=== PATIENT | female | born 1965 | race Caucasian/White ===

== ENCOUNTER 2025-03-19 15:33 | Outpatient (CLI) | payer OTHER, SELFPAY ==
--- NOTE | ~2025-03-19 | US_ITS ---
EXAM: RENAL ULTRASOUND HISTORY: serum creatinine above reference range COMPARISON: None FINDINGS: RIGHT KIDNEY: 10.4 x 4.7 x 6.3 cm. The parenchyma of the right kidney is unremarkable in echogenicity. No hydronephrosis or bulky renal calculi. LEFT KIDNEY: 9.9 x 5.0 x 5.5 cm No hydronephrosis or renal calculi. An indeterminate avascular focus of decreased echogenicity is identified within the interpolar region of the left kidney measuring 4.4 x 2.2 x 2.3 cm. The remainder of the parenchyma of the left kidney is unremarkable in echogenicity. BLADDER: Only minimally distended, limiting its evaluation. IMPRESSION: No hydronephrosis or renal calculi. Findings within the interpolar region of the left kidney for which contrast enhanced cross-sectional imaging is recommended (with either CT or MRI), with renal mass protocol. Reviewed, dictated and finalized at location A. IMPRESSION: No hydronephrosis or renal calculi. Findings within the interpolar region of the left kidney for which contrast enh anced cross-sectional imaging is recommended (with either CT or MRI), with michael l mass protocol.
== END 2025-03-19 15:34 | disposition home or self-care (01) ==
LOC: MICIMG 15:34
PROVIDERS: PCP Internal Medicine; Visit Provider Internal Medicine
DX: R79.89 Other specified abnormal findings of blood chemistry (principal)
CPT/HCPCS: 76775

== ENCOUNTER 2025-03-30 09:23 | Outpatient (CLI) | payer OTHER, SELFPAY ==
--- NOTE | ~2025-03-30 | MR_ITS ---
EXAMINATION: MR renal wo con DATE: 03/30/2025 10:14 INDICATION: Abnormal findings on diagnostic imaging TECHNIQUE: Magnetic resonance imaging (MRI) of the abdomen was performed without intravenous contrast . Sequences included coronal T2-weighted SS-FSE, coronal and axial FS 2D-FIESTA, axial STIR FSE, axi al T2-weighted SS-FSE, axial T2-weighted FS SS-FSE, axial diffusion-weighted SE, axial dual-echo T1-w eighted FSPGR, and axial and coronal T1-weighted LAVA. COMPARISON: Ultrasound dated 03/19/2025 FINDINGS: Heart size is normal. No pericardial or pleural effusion. Diffuse hepatic steatosis with focal sparin g along the gallbladder fossa. Gallbladder, spleen, pancreas and bilateral adrenal glands are normal. There is a 4.1 x 2.5 x 2.8 cm cyst at the upper pole of the right kidney which extends into the ceph alad aspect of the renal hilum corresponding to the lesion of concern on prior ultrasound. There are couple additional <5 2. 2 hyperintense likely cysts in both kidneys. Visualized portions of bowels are unremarkable includ ing a normal appendix. No pathologically enlarged abdominal or upper pelvic lymphadenopathy. Moderate lumbar and thoracic spondylosis. A couple T1 hyperintense fat saturating hemangiomas at T11. IMPRESSION: 1. 4.1 x 2.5 x 2.8 cm left renal cyst which corresponds to the lesion of concern on prior ultrasound. Reviewed, dictated and finalized at location A. IMPRESSION: 1. 4.1 x 2.5 x 2.8 cm left renal cyst which corresponds to the lesion of concer n on prior ultrasound.
== END 2025-03-30 09:24 | disposition home or self-care (01) ==
PROVIDERS: PCP Internal Medicine; Visit Provider Internal Medicine
DX: N28.1 Cyst of kidney, acquired (principal); R93.89 Abnormal findings on diagnostic imaging of other specified body structures
CPT/HCPCS: 74181

== ENCOUNTER 2025-04-20 17:19 | Outpatient (CLI) | payer OTHER, SELFPAY ==
--- OUTSIDE RECORDS SUMMARY | 2025-04-20 17:28 | XMS_ITS | CONTINUITY OF CARE DOCUMENT ---
Author Name maya trejo Address Unknown Organization [facility] Address [address] [place] [address] Phone [phone] Care Team Providers Care Site Leasing Agent Name Role Phone Macho GARCIA, Jose Ramon Unavailable [phone] RICHARD BROWN MD Unavailable [phone] RICHARD BROWN MD Unavailable INSURANCE PROVIDERS Payer name Policy type / Coverage type Walden red democrat ID [facility] [id number] Other [id number] HEALTHCARE AND FAMILY SERVICES Medicaid 1 [id number]
--- OUTSIDE RECORDS SUMMARY | 2025-04-20 17:28 | XMS_ITS | Encounter Summary ---
Author Organization [facility] Address 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
--- OUTSIDE RECORDS SUMMARY | 2025-04-20 17:28 | XMS_ITS | Clinical Summary ---
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
--- OUTSIDE RECORDS SUMMARY | 2025-04-20 17:28 | XMS_ITS | Continuity of Care Document ---
Author Organization Located within [facility] Address [address] [place] [address] [address] [place] [address] Phone Care Team Providers Care Delivery Assistant Name Role Phone Marie OD, Felipe Unavailable Unavailable Procedures Procedure Date Eye Exam & Treatment Refraction Office/outpatient Visit, Est Office/outpatient Visit, Est Advance Directives Directive Yes / No Effective Date File Name No Information Encounters Encounter Description Practice Location Reason(s) For Visit Diagnoses Date Provider Providers Copied on Encounter [facility], [address] [place] [address] [address], [place], [place], [id number], [place] tel:[phone] [facility] No Information [address] Marie OD Felipe. [address] , [address], [place], [address], [place]. tel:[phone] Office/outpat ient Visit, [facility], [address] [place] [address] [address], [place], [place], [id number], [place] tel:[phone] [facility] No Information [address] Wantee Lyles. [address], [address], [place], [place], [id number], [place]. tel:[phone] Office/outpat ient Visit, [facility], [address] [place] [address] [address], [place], [place], [id number], [place] tel:[phone] [facility] No Information 7 Doisy Edward. [address] , [address], [place], [address], [place]. tel:[phone] Family History Family Member Type Diagnosis Age At Onset No Information Payers Payer name Insurance type Covered green party ID Ashley galloway(s) Medicaid [facility] [id number] Social History Type Description Quantity Date Captured Comments Sex Female Smoking Status No Information Chief Complaint And Reason For Visit No Information Reason For Referral Reason For Referral No Information History Of Present Illness Encounter Date Complaint History Of Prese nt Illness No Information Functional Status Date Functional Assessmen t No Information Instructions Date Instruction Additional Infor mation No Information Assessments Type Assessment Date No Information Patient Care Teams Name Effective Dates (start - stop) Status Members No Information
--- OUTSIDE RECORDS SUMMARY | 2025-04-20 17:28 | XMS_ITS | Encounter Summary ---
Author Organization [facility] Address 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
[2025-04-20 18:06] LABS: Basophils Percent Auto 0.3 % (0.2-1.2); Eosinophils Absolute Auto 0.3 K/mm3 (0-0.3); Hematocrit 42.2 % (37.0-47.0); Hemoglobin 13.7 g/dL (12.0-15.0); Immature Granulocyte Absolute 0.04 K/mm3 (0.00-0.031); Immature Granulocyte Percent A 0.3 % (0-0.5); Lymphocytes Absolute Auto 3.74 K/mm3 (0.9-3.2); Lymphocytes Percent Auto 28.1 % (18.3-44.2); Mean Corpuscular HGB Conc 32.5 g/dl (32-36); Mean Corpuscular Hemoglobin 28.4 pg (26-34); Mean Corpuscular Volume 87.6 fl (80-100); Mean Platelet Volume 9.7 fl (7.4-10.4); Monocytes Absolute Auto 0.9 K/mm3 (0.1-0.6); Monocytes Percent Auto 6.5 % (2.6-8.5); Neutrophils Absolute Auto 8.4 K/mm3 (1.3-6.7); Neutrophils Percent Auto 62.8 % (45.5-73.1); Platelet Count Result 235 k/mm3 (150-375); Red Blood Count 4.82 M/mm3 (4.2-5.4); Red Cell Distribution Width 13.4 % (11.5-14.5); White Blood Count 13.3 K/mm3 (4.5-10.0)
[2025-04-20 18:21] LABS: Alanine Aminotransferase 29 U/L (6-35); Albumin Level 4.3 g/dL (3.5-5.1); Alkaline Phosphatase 75 U/L (38-126); Anion Gap 9 mmol/L (4-12); Aspartate Amino Transferase 37 U/L (14-36); Bilirubin,Total 0.6 mg/dL (0.2-1.3); Blood Urea Nitrogen 25 mg/dL (7-17); Calcium 9.6 mg/dL (8.4-10.2); Carbon Dioxide 28 mmol/L (22-30); Chloride 102 mmol/L (98-107); Estimated Glomerular Filt Rate 58; Glucose 85 mg/dL (65-110); Potassium 4.5 mmol/L (3.4-5.0); Sodium 139 mmol/L (137-145)
[2025-04-21 07:54] LABS: Add Urine Microscopic? YES; Appearance Urine Cloudy (Clear); Bacteria Urine 4+ /hpf; Bilirubin Urine Negative (Negative); Blood Urine 3+ (Negative); Color Urine Dark Yellow (Yellow); Glucose Urine UA Negative (Negative); Ketones Urine Negative (Negative); Leukocyte Esterase Ur 1+ LEU/UL (Negative); Need Manual Microscopic Reviewed; Nitrate Urine Negative (Negative); Non Pathogenic Casts 0-2; Protein Urine 1+ mg/dL (Negative); RBC Urine >100 /hpf (0-2); Specific Grav Ur 1.023 (1.001-1.035); Squamous Epithelial Cell Urine Moderate /hpf (Few); Urobilinogen Urine 0.2 mg/dL (<2.0); WBC Urine 21-50 /hpf (0-3)
== END 2025-04-20 17:20 | disposition home or self-care (01) ==
LOC: ANHLAB 17:26
PROVIDERS: PCP Internal Medicine; Visit Provider Internal Medicine
DX: R31.9 Hematuria, unspecified (principal)
CPT/HCPCS: 36415; 80053; 81001; 85025

== ENCOUNTER 2025-05-03 13:30 | Outpatient (RCR) | payer OTHER, SELFPAY ==
[2025-03-08 14:44] VITALS: BMI 50.0
[2025-04-03 14:50] VITALS: BMI 50.0
[2025-05-03 13:30] VITALS: BMI 49.7
== END 2025-06-05 07:49 | disposition home or self-care (01) ==
LOC: ANHDMC 13:30
PROVIDERS: PCP Internal Medicine; Visit Provider Internal Medicine
DX: E11.9 Type 2 diabetes mellitus without complications (principal); Z71.3 Dietary counseling and surveillance
CPT/HCPCS: 97802; 97803

== ENCOUNTER 2025-05-09 15:25 | Outpatient (CLI) | payer OTHER, SELFPAY ==
--- NOTE | ~2025-05-09 | CT_ITS ---
CT of the Abdomen and Pelvis: Indication: Microscopic hematuria Technique: 2.5 mm axial scans were obtained through the abdomen and pelvis prior to and following in travenous administration of 130 cc of Omnipaque 350. Dose reduction technique was used on this scan b y utilizing automated exposure control and iterative reconstruction technique. The dose-length produc t (DLP) was 2172.64 mGy-cm. Findings: Scans through the lung bases are unremarkable. The liver, spleen, pancreas, gallbladder, adrenals and kidneys are within normal limits. No evidence of aortic aneurysm. No lymphadenopathy. No bowel obstruction or bowel wall thickening. There is no evidence to suggest acute appendicitis. Images through the pelvis were performed. Urinary bladder unremarkable. No pelvic mass seen. No ascit es. Impression: No significant abnormalities seen. No etiology for hematuria identified. Reviewed, dictated and finalized at [facility]. Impression: No significant abnormalities seen. No etiology for hematuria identified.
== END 2025-05-09 15:26 | disposition home or self-care (01) ==
PROVIDERS: PCP Internal Medicine; Visit Provider Urology
DX: R31.29 Other microscopic hematuria (principal)
CPT/HCPCS: 74178; Q9967

== ENCOUNTER 2025-05-17 07:19 | Outpatient (CLI) | payer OTHER, SELFPAY ==
--- NOTE | ~2025-05-17 | XR_ITS ---
EXAM/PROCEDURE: XR chest 2V - 05/17/2025 7:27 CDT HISTORY: 60 years old Female with Dyspnea TECHNIQUE: Two view(s) of the chest. COMPARISON: None available. FINDINGS: LUNGS/ PLEURA: No focal consolidation. No appreciable pneumothorax or large pleural effusion. HEART/ MEDIASTINUM: Heart appears normal in size. BONES: Degenerative changes. Partially visualized ORIF in the left proximal humerus. OTHER: Visualized upper abdomen is unremarkable. IMPRESSION: No acute process. Reviewed, dictated and finalized at location A. IMPRESSION: No acute process.
== END 2025-05-17 07:20 | disposition home or self-care (01) ==
LOC: MICIMG 07:22
PROVIDERS: PCP Internal Medicine; Visit Provider Internal Medicine
DX: R06.00 Dyspnea, unspecified (principal)
CPT/HCPCS: 71046

== ENCOUNTER 2025-08-06 01:01 | Day surgery (SDC) | payer OTHER, SELFPAY ==
[2025-07-30 10:39] VITALS: BMI 49.8
--- NOTE | 2025-07-30 10:51 | PC.NURSE ---
Report to the Outpatient Waiting Room, entrance under the green pavilion located off [facility], at time _0700_ on date _[id number]_. Planned Procedure Time: _0900_.? Time changes happen often and if your time is changed the preop area will call you the afternoon before. - You and your visitor will be asked to self-screen and do not enter if you have any COVID symptoms. Please call surgeon if you need to reschedule. - A mask is optional within the hospital at this time. Patients may have clear liquids (water, carbonated beverages, clear teas, apple juice) until 3 hours prior to surgery with a maximum of 20 ounces. - No food from midnight until time of surgery and no smoking, or chewing tobacco (or any form of nicotine). No chewing gum, candy or mints. Take only the following medications with a SIP of water on the morning of surgery: __Metoprolol, Hydralazine and if needed may use inhalers.___ DO NOT STOP ANY OF YOUR OTHER PRESCRIPTION MEDICATIONS PRIOR TO SURGERY EXCEPT THE FOLLOWING Hold all vitamins and supplements for 3 days per anesthesiologist. Medications to discontinue per physician Date to take last dose Please no make-up, nail djiboutian, hairspray, perfume, deodorant, or body powder the day of surgery.? No jewelry (including any body piercings) or valuables the day of surgery, leave them at home.? Please take a shower or bath the night before, or the morning of, surgery with an antibacterial soap.? Wear comfortable, loose fitting clothing.? - Jewelry must be removed prior to entering the operating room.? Rings and piercings that are not removed may be cut off. - The hospital will not accept responsibility for valuables.? - Please leave all valuables, including medications, at home the day of surgery. If you are going home after surgery, a licensed regional owner operator truck driver must drive you home.? - NO public transportation without another adult if you receive anesthesia. - We recommend that an adult stay with you for 24 hours following discharge. - We also recommend that you do not drive, make important decision, drink alcoholic beverages, or take any drugs that were not prescribed by your health care provider for at least 24 hours after your discharge time. Follow any additional instructions given to you from your surgeon. Telephone instructions given to __Sheryl___and asked if any additional questions and then verbalized understanding. Patient advised to call surgeon office or pre surgery nurse liaison [phone] if any additional questions.
--- NOTE | 2025-08-05 12:50 | PM.IMHP ---
H&P: HPI History of Present Illness Date/Time: 08/05/25 12:50 Chief Complaint: PMB Narrative: Paula is a 60yo postmenopausal P2022, who presented as a [employer] IN[employer] for [employer] 06/2025; pap was normal 06/2025. She reports a h/o polyps and had a D&C (benign) in approximately 2020. She has not had any bleeding until recently. She has been having medical issues and ultimately diagnosed with diastolic heart dysfunction (had extreme lower extremity swelling) and had multiple checks on her kidneys/bladder that were all negative, because she had bleeding for 3 weeks. She reports passing clots, she denies any pelvic pain. She denies any vaginal issues. She is not sexually active. She denies any breast issues, scheduled for her mammo. She reports a normal h/o paps, last 2020. She is also scheduled for colon cancer screening. 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 Review of Systems Constitutional: Constitutional: Denies chills, Denies fever(s) and Denies headache(s) Eyes: Eyes: Denies change in vision ENT: Denies dizziness and Denies headache(s) Cardiovascular: Cardiovascular: Denies chest pain and Denies dyspnea Respiratory: Respiratory: Denies cough and Denies dyspnea Gastrointestinal: Gastrointestinal: Denies abdominal pain and Denies change in stool character Genitourinary: Genitourinary: Reports abnormal vaginal bleeding, Denies pelvic pain, Denies vaginal discharge, Denies vaginal odor and Denies vaginal pruritus Neurologic: Denies dizziness and Denies headache(s) Psychiatric: Psychiatric: Denies anxiety and Denies depression [facility] Past Medical History Medical History (Updated 07/05/25 @ 14:37 by Shari Cain MD) Diabetes Diastolic dysfunction Surgical History Surgical History (Updated 07/05/25 @ 13:50 by Mic Obregon MA) H/O dilation and curettage History of open reduction and internal fixation (ORIF) procedure open reduction internal fixation three parts left proximal humerus fracture Family History Family History Father Diabetes mellitus Hypertension Kidney disease Mother Diabetes mellitus Heart disease Hypertension Grandparent Hypertension Other Stomach cancer Colon cancer Social History Social History (Updated 07/05/25 @ 13:49 by OBI Peñaloza Smoking status: Former smoker Tobacco type: cigarettes Alcohol intake: former Alcohol use details: 26 years ago Substance use: former Substance use type: marijuana, crack/cocaine, opiates and other Current Housing: Decline to Answer Concerned About Future Housing: Decline to Answer Difficulty Paying Gas/Electric Bills: Decline to Answer Difficulty Paying for Meds: Decline to Answer Currently Unemployed: Decline to Answer Education: Decline to Answer Difficulty w/ Childcare or Family Care: Decline to Answer Living arrangements: alone Occupation/Education: occupation Additional occupation/education comments: [employer] Spiritual care concerns: No Meds Home Medications and Allergies Home Medications ?Medication ?Instructions ?Recorded ?Confirmed ?Type atorvastatin 10 mg tablet 10 mg PO QPM 02/26/25 07/30/25 History metoprolol succinate 25 mg 25 mg PO DAILY 02/26/25 07/30/25 History tablet,extended release 24 hr montelukast 10 mg tablet 10 mg PO DAILY 02/26/25 07/30/25 History fluticasone furoate 50 1 inh inhalation Q24H PRN allergic 07/05/25 07/30/25 History mcg/actuation blister powder for symptoms inhalation furosemide 20 mg tablet 40 mg PO DAILY 07/05/25 07/30/25 History hydralazine 50 mg tablet 50 mg PO BID 07/05/25 07/30/25 History albuterol 90 mcg/actuation aerosol 90 mcg inhalation Q6H PRN dyspnea 07/30/25 07/30/25 History inhaler biotin 10,000 mcg capsule 1 mcg PO DAILY 07/30/25 07/30/25 History sacubitril 97 mg-valsartan 103 mg 1 tablet PO BID 07/30/25 07/30/25 History tablet (Entresto) Allergies Allergy/AdvReac Type Severity Reaction Status Date / Time No Known Allergies Allergy Verified 07/30/25 10:31 Exam Const: General: cooperative, healthy appearing, comfortable and no acute distress Orientation/consciousness: patient oriented x3 Resp: Effort & Inspection: normal respiratory effort Cardio: Rate: regular rate GI: Inspection: normal to inspection GI Palp: No abdominal tenderness and Yes Soft to palpation : Other: deferred to OR Skin: General skin exam: normal color Neuro: General: patient oriented x3 Extrem: General: normal to inspection Psych: Appearance: grossly normal Affect: normal affect Attitude: cooperative Assessment and Plan Assessment and plan (1) Postmenopausal bleeding: Code(s): N95.0 - Postmenopausal bleeding Status: Acute Plan - PMB in the setting of thickened endometrium noted on THERAPEUTIC RIDING INSTRUCTOR US, need to rule out hyperplasia or malignancy - Proceed with Hysteroscopy with D&C - risks and benefits discussed in detail
--- NOTE | 2025-08-06 07:03 | WPDHPUPDATE1 ---
History and Physical Update Update Date/Time: 08/06/25 07:03 History and Physical has been reviewed, including an updated exam of the patient. There are NO changes in the patient's condition. Risks, benefits, and alternatives have been discussed and questions answered. Patient agrees to proceed with Hysteroscopy with D&C .
[2025-08-06] MEDS: LACTATED RINGERS 1,000 ML 30 ML IV CONT (11:30)
[2025-08-06] MEDS: ACETAMINOPHEN 500 MG TABLET 1000 MG PO (11:30)
[2025-08-06 12:49] VITALS: BP 170/75; PULSE 64; TEMP 36.4; O2SAT 96; BMI 51.0
--- NOTE | 2025-08-06 12:52 | WPDANESEPPF ---
Anes - Initial Pre Proc Eval Procedure: Operation Date: 08/06/25 13:00 Proposed Procedures p Hysteroscopy Dilation and Curettage - Shari Cain MD Date/Time: 08/06/25 12:52 Surgeon: Shari Cain MD Pre Op Diagnosis: post menopausal bleeding Patient Data Age: 60 Gender: F Height: 1.73 m Weight: 152.1 kg Last Vital Signs Temp 36.4 C L 08/06/25 12:49 Pulse 64 08/06/25 12:49 BP 170/75 H 08/06/25 12:49 Pulse Ox 96 08/06/25 12:49 O2 Del Method Room Air 08/06/25 12:49 Allergies Allergy/AdvReac Type Severity Reaction Status Date / Time No Known Allergies Allergy Verified 07/30/25 10:31 Home Medications ?Medication ?Instructions ?Recorded ?Confirmed ?Type atorvastatin 10 mg tablet 10 mg PO QPM 02/26/25 07/30/25 History metoprolol succinate 25 mg 25 mg PO DAILY 02/26/25 08/06/25 History tablet,extended release 24 hr montelukast 10 mg tablet 10 mg PO DAILY 02/26/25 07/30/25 History fluticasone furoate 50 1 inh inhalation Q24H PRN allergic 07/05/25 07/30/25 History mcg/actuation blister powder for symptoms inhalation furosemide 20 mg tablet 40 mg PO DAILY 07/05/25 07/30/25 History hydralazine 50 mg tablet 50 mg PO BID 07/05/25 08/06/25 History albuterol 90 mcg/actuation aerosol 90 mcg inhalation Q6H PRN dyspnea 07/30/25 07/30/25 History inhaler biotin 10,000 mcg capsule 1 mcg PO DAILY 07/30/25 07/30/25 History sacubitril 97 mg-valsartan 103 mg 1 tablet PO BID 07/30/25 07/30/25 History tablet (Entresto) acetaminophen 500 mg tablet 1,000 mg (2 x 500 mg) PO TID #60 08/06/25 Rx tabs Laboratory Tests 08/06/25 11:45 POC Capillary Glucose 125 H mg/dl (65-105) Patient hx anesthesia problems: none Family hx anesthesia problems: none Results Review: All pre-operative results and documents have been reviewed as part of the pre-operative evaluation. PMFSH Past Medical History Medical History (Updated 08/06/25 @ 12:52 by Ant Costello MD) HTN (hypertension) SELVIN (obstructive sleep apnea) Diastolic dysfunction Surgical History Surgical History H/O dilation and curettage History of open reduction and internal fixation (ORIF) procedure open reduction internal fixation three parts left proximal humerus fracture Family History Family History Father Diabetes mellitus Hypertension Kidney disease Mother Diabetes mellitus Heart disease Hypertension Grandparent Hypertension Other Stomach cancer Colon cancer Social History Social History Smoking status: Former smoker Tobacco type: cigarettes Alcohol intake: former Alcohol use details: 26 years ago Substance use: former Substance use type: marijuana, crack/cocaine, opiates and other Current Housing: Decline to Answer Concerned About Future Housing: Decline to Answer Difficulty Paying Gas/Electric Bills: Decline to Answer Difficulty Paying for Meds: Decline to Answer Currently Unemployed: Decline to Answer Education: Decline to Answer Difficulty w/ Childcare or Family Care: Decline to Answer Living arrangements: alone Occupation/Education: occupation Additional occupation/education comments: [employer] Spiritual care concerns: No Anes - Eval Final PreProcedure Day of Procedure 08/06/25 12:52 Patient weight: morbidly obese Heart: regular rate and rhythm Lungs: clear to auscultation Airway: Mallampati scale class II Neurological: alert and oriented Last oral intake: >/= 8 hours ASA classification: III Emergent: no Anesthetic plan: proceed Anesthesia type and monitoring: general GIVS and standard monitoring Results Review: All pre-operative results and documents have been reviewed as part of the pre-operative evaluation. Informed Consent: The patient's anesthetic plan and its attendant risks and benefits were discussed with the patient/family/POA. Questions were solicited and answers provided to the satisfaction of the patient/family/POA.
--- NOTE | 2025-08-06 13:19 | S_PTH ---
PATIENT: Paula Hamm LOC: [facility] U#:[id number] AGE/SX: 60/F ROOM: RE08/06/[address]: Shari Cain MD : 1965 BED: DIS: 08/06/2025 SPEC #: [id number] RECD: 08/06/25 13:50 STATUS: VIVIEN RE #: [id number] CESIA: 08/06/25 13:[address]: Shari Cain DEPT: [facility] Surgical RECD BY: Bridger Garcia ENTERED: 08/06/25 13:50 SP TYPE: Surgical OTHR DR: Duran ChapmanMD Tissues: A - Endometrial Curettings B - Polyp Procedures: Hematoxylin and Eosin Stain Gross and Microscopic Level 4
[2025-08-06 13:36] VITALS: BP 133/64; PULSE 52; RESP 20; O2SAT 100
--- NOTE | 2025-08-06 13:39 | P.OP_ITS ---
Procedure Note - Detailed Date of Procedure 08/06/25 Pre-op Diagnosis post menopausal bleeding thickened endometrium on US Post-op Diagnosis Other (endometrial polyps) Procedure Performed Hysteroscopy, D&C Surgeon Shari Cain MD Anesthesia MAC Findings Normal appearing cervix. Uterus sounded to 9cm. Multiple polyps noted; largest arising from the anterior uterine wall; concerning appearing polypoid mass arising from the right cornua, another large polyp noted in the left coruna. Bilateral tubal ostia visualized. Good hemostasis at end of case. Fluid deficit: 100cc. Description of Procedure Paula was taken to the operating room where she was placed under sedation without complications. She was then prepped and draped in the usual sterile fashion in the dorsal lithotomy position with her legs in low Carmine stirrups. A time-out was performed and no perioperative antibiotics were indicated. A bivalve speculum was placed within the vagina where the cervix was easily identified. The anterior lip of the cervix was grasped with a single-tooth te naculum. The uterus was sounded. The cervix was then serially dilated to allow for the hysteroscope. The hysteroscope was advanced into the uterine cavity with the above findings noted. Using the Smol Aveta tissue shaver, the polyps were removed; the endometrial mass arising from the right cornua was also sampled. The device/hysteroscope were then removed. A curettage was then performed until a good uterine cry was felt throughout the uterus. The hysteroscope was once again advanced back into the cavity and two polyps appeared to still be present, so those were removed using the Smol Aveta tissue shaver. The cavity then appeared normal. Good hemostasis was noted. All instruments were removed from the vagina. Sponge, lap, instrument, and needle counts were correct at the end of the procedure. Patient was awoken from anesthesia and taken to recovery with plans of same-day discharge home. Estimated Blood Loss 10 IV Fluids 200 Pathology Yes (endometrial polyps and endometrial curettings) Complications No immediate complications Condition Stable Disposition Same day [facility] Billing Surgery - Charge Forward: Surgery Billing
[2025-08-06 14:06] VITALS: BP 141/56; PULSE 46
[2025-08-06 14:36] VITALS: BP 125/65; PULSE 45
[2025-08-06 14:55] VITALS: BP 148/70; PULSE 46
== END 2025-08-06 15:05 | disposition home or self-care (01) ==
PROVIDERS: PCP Internal Medicine; Visit Provider Obstetrics & Gynecology
PROC: 0U5B8ZZ Destruction of Endometrium, Via Natural or Artificial Opening Endoscopic (ICD-10-PCS; CPT 58563; principal; 2025-08-06 13:00)
DX: N84.0 Polyp of corpus uteri (principal); E11.9 Type 2 diabetes mellitus without complications; I11.0 Hypertensive heart disease with heart failure; I50.30 Unspecified diastolic (congestive) heart failure; E66.01 Morbid (severe) obesity due to excess calories; Z68.43 Body mass index [BMI] 50.0-59.9, adult; Z79.51 Long term (current) use of inhaled steroids; Z98.890 Other specified postprocedural states; Z87.891 Personal history of nicotine dependence; Z80.0 Family history of malignant neoplasm of digestive organs; Z82.49 Family history of ischemic heart disease and other diseases of the circulatory system
CPT/HCPCS: 58558; 82948; 88305; A9270; J2003; J2250; J2704; J3010; J7120

== ENCOUNTER 2025-08-07 08:13 | Outpatient (CLI) | payer OTHER, SELFPAY ==
--- NOTE | ~2025-08-07 | XR_ITS ---
EXAMINATION: XR shoulder RT min 2V, 08/07/2025 9:20 CDT HISTORY: Shoulder pain COMPARISON: No comparisons available. Findings: No acute fracture or malalignment. No significant degenerative changes. Soft tissues unremarkable. Impression: No acute fracture or malalignment. Reviewed, dictated and finalized at location A. Impression: No acute fracture or malalignment.
== END 2025-08-07 08:14 | disposition home or self-care (01) ==
LOC: MICIMG 08:18
PROVIDERS: PCP Internal Medicine; Visit Provider Orthopaedic Surgery Hand Surgery
DX: M25.511 Pain in right shoulder (principal)
CPT/HCPCS: 73030

== ENCOUNTER 2025-09-05 15:41 | Outpatient (CLI) | payer OTHER, SELFPAY ==
--- NOTE | ~2025-09-05 | MM_ITS ---
EXAMINATION: MM screening moreno BI w judith HISTORY: Screening TECHNIQUE: Craniocaudal and mediolateral oblique 3-D tomosynthesis images were obtained and synthetic 2-D images were generated. CAD analysis was submitted and interpreted. COMPARISON: No prior mammogram is available for comparison at this institution. BREAST PARENCHYMAL COMPOSITION: Not Dense: The breasts are almost entirely fatty. FINDINGS: There is no evidence of suspicious mass, calcification, or architectural distortion to suggest malignancy. IMPRESSION: 1. No mammographic evidence of malignancy. Recommend routine screening mammography in one year. BI-RADS Category 2: Benign finding(s) Reviewed, dictated and finalized at location Q. IMPRESSION: 1. No mammographic evidence of malignancy. Recommend routine screening mammogra phy in one year. BI-RADS Category 2: Benign finding(s)
== END 2025-09-05 15:42 | disposition home or self-care (01) ==
LOC: MICIMG 15:42
PROVIDERS: PCP Internal Medicine; Visit Provider Internal Medicine
DX: Z12.31 Encounter for screening mammogram for malignant neoplasm of breast (principal)
CPT/HCPCS: 77063; 77067